=== PATIENT | female | born 1970 | race Caucasian/White ===

== ENCOUNTER → 2017-02-27 | Outpatient (CLI) | payer BC ==
--- NOTE | 2017-02-27 17:14 | US ---
EXAMINATION TYPE: US thyroid st tissue head/neck DATE OF EXAM: 02/27/2017 COMPARISON: NONE CLINICAL HISTORY: E04.1 Thyroid Nodule E03.9 Hypothyroidism. Difficulty swallowing, cannot lay on her back because airway gets cut off GLAND SIZE: Right Lobe: 4.6 x 1.6 x 1.6 cm Overall Parenchyma: homogeneous Left Lobe: 5.2 x 1.2 x 1.5 cm Overall Parenchyma: homogeneous Isthmus Thickness: 0.2 cm NODULES RIGHT: # of nodules measured on right: 1 1. 0.5 X 0.4 x 0.4 cm hypoechoic cystic nodule at the mid pole with well-defined margins. This nod ule is wider than tall and shows intranodular vascularity. Prior size: 0.4 x 0.3 x 0.3 cm LEFT: # of nodules measured on left: 0 ISTHMUS: # of nodules measured in the isthmus: 0 Bilateral neck scanned, no evidence of lymphadenopathy. IMPRESSION: Essentially stable exam
== END | disposition home or self-care (01) ==
LOC: RADUSWWP 15:35
PROVIDERS: ATTEND Family Medicine
DX: E04.1 Nontoxic single thyroid nodule (principal); E03.9 Hypothyroidism, unspecified
CPT/HCPCS: 76536

== ENCOUNTER → 2018-01-06 | Outpatient (CLI) | payer BC ==
--- NOTE | 2018-01-06 10:17 | FL ---
EXAMINATION: Cervical and Thoracic Esophagram DATE OF EXAM: 01/06/2018 CLINICAL INDICATION: 47-year-old female with dysphagia, complaining of food getting stuck in throat f or the last 6-12 months. COMPARISON: Correlation thyroid ultrasound 02/27/2017 Total Fluoroscopy Time: 1 minute 18 seconds Total images: 34 FINDINGS: The swallowing mechanism is normal. There is minimal focal impression onto the posterior esophageal w all at the level of the lower cervical spine secondary to very mild endplate spondylosis. Otherwise, hypopharyngeal anatomy is preserved without evidence for diverticulum or web. The cervical and thoracic portions have a normal course and caliber and normal motility. The mucosa i s normal and no persistent filling defect is encountered. There is a tiny sliding hiatal hernia. Gastroesophageal reflux could not be elicited during the cours e of the exam IMPRESSION: 1. Minimal endplate spondylosis causing very mild posterior impression along the upper esophagus wall . No obstructive changes. 2. No esophageal diverticulum, stricture, web, or other anatomic abnormality to explain the patient's dysphagia. 3. Tiny sliding hiatal hernia.
== END | disposition home or self-care (01) ==
LOC: RADFLMAIN 09:28
PROVIDERS: ATTEND Family Medicine
DX: K44.9 Diaphragmatic hernia without obstruction or gangrene (principal)
CPT/HCPCS: 74220

== ENCOUNTER 2018-06-05 09:32 | Observation (INO) | payer BC ==
[2018-06-05] MEDS ORDERED: PANTOPRAZOLE 40 MG/10 ML VIAL IVP STA (10:20)
[2018-06-05] MEDS ORDERED: SODIUM CHLORIDE 0.9% 1,000 ML IV STA (10:20)
[2018-06-05] MEDS ORDERED: ONDANSETRON 4 MG/2 ML VIAL IVP STA (10:20)
[2018-06-05] MEDS ORDERED: MORPHINE SULFATE 4 MG/ML SYRINGE IV STA (10:20)
--- NOTE | 2018-06-05 10:50 | ED ---
Abdominal Pain HPI - General Chief Complaint: Abdominal Pain Stated Complaint: abd and leg pain Time Seen by Provider: 06/05/18 09:54 Source: patient, RN notes reviewed, old records reviewed Mode of arrival: ambulatory Limitations: no limitations - History of Present Illness Initial Comments: Patient is a 39-year-old female presents emergency department today with days of left-sided abdominal pain. Patient reports symptoms have progressed rapidly. She states that she did have some loose stools today. She states that she has had no fevers or chills. She states the pain does radiate towards her back. Patient reports that she's had no abnormal vaginal discharge or dysuria or hematuria. Surgical history includes appendectomy.Patient denies any recent fever, chills, shortness of breath, chest pain, back pain, numbness or tingling, dysuria or hematuria, constipation or diarrhea, headaches or visual changes, or any other current symptoms - Related Data Home Medications Medication Instructions Recorded Confirmed Lisinopril [Zestril] 10 mg PO QAM 03/17/14 06/05/18 Cholecalciferol [Vitamin D3] 1,000 unit PO HS 06/05/18 06/05/18 Evening [place] Oil 500 mg PO DAILY 06/05/18 06/05/18 Levothyroxine Sodium [Synthroid] 100 mcg PO DAILY 06/05/18 06/05/18 Magnesium Oxide [Mag-Ox] 250 mg PO DAILY 06/05/18 06/05/18 Multivitamins, Thera [Multivitamin 1 tab PO DAILY 06/05/18 06/05/18 (formulary)] Previous Rx's Medication Instructions Recorded EPINEPHrine [Epipen 2-Benito] 0.3 mg IM ONCE PRN #1 ml 03/27/14 Allergies Allergy/AdvReac Type Severity Reaction Status Date / Time No Known Allergies Allergy Verified 06/05/18 09:56 Review of Systems ROS Statement: Those systems with pertinent positive or pertinent negative responses have been documented in the HPI. ROS Other: All systems not noted in ROS Statement are negative. Past Medical History Past Medical History: Hypertension, Thyroid Disorder Additional Past Medical History / Comment(s): pt states mild mummur, see Dr Taveras History of Any Multi-Drug Resistant Organisms: None Reported Past Surgical History: Appendectomy, Tubal Ligation Additional Past Surgical History / Comment(s): JAW SURGERY, d&c Past Anesthesia/Blood Transfusion Reactions: No Reported Reaction Past Psychological History: No Psychological Hx Reported Smoking Status: Current every day smoker Past Alcohol Use History: Occasional Past Drug Use History: None Reported - Past Family History Father Family Medical History: Cancer General Exam - General Exam Comments Initial Comments: Patient is a 47-year-old female. Alert and oriented. Patient appears in no significant distress. Limitations: no limitations General appearance: alert, in no apparent distress Head exam: Present: atraumatic, normocephalic, normal inspection Eye exam: Present: normal appearance, PERRL, EOMI. Absent: scleral icterus, conjunctival injection, periorbital swelling ENT exam: Present: normal exam, mucous membranes moist Neck exam: Present: normal inspection. Absent: tenderness, meningismus, lymphadenopathy Respiratory exam: Present: normal lung sounds bilaterally. Absent: respiratory distress, wheezes, rales, rhonchi, stridor Cardiovascular Exam: Present: regular rate, normal rhythm, normal heart sounds. Absent: systolic murmur, diastolic murmur, rubs, gallop, clicks GI/Abdominal exam: Present: soft, normal bowel sounds. Absent: distended, tenderness, guarding, rebound, rigid Extremities exam: Present: normal inspection, full ROM, normal capillary refill. Absent: tenderness, pedal edema, joint swelling, calf tenderness Back exam: Present: normal inspection Neurological exam: Present: alert, oriented X3, CN II-XII intact Psychiatric exam: Present: normal affect, normal mood Skin exam: Present: warm, dry, intact, normal color. Absent: rash Course Vital Signs 06/05/18 06/05/18 09:39 12:42 Temperature 97.7 F Pulse Rate 94 77 Respiratory 18 18 Rate Blood Pressure 184/115 143/101 O2 Sat by Pulse 96 96 Oximetry Medical Decision Making - Medical Decision Making Patient is a 47-year-old female presents emergency Department complaint of left- sided abdominal pain progressive over the past 4 days. Patient states she's felt nauseated. It is had some loose stools today. She hasn't had few diffuse tenderness, worse over the left upper and lower quadrants. She had IV fluids labwork obtained. CT was completed. Patient's labwork was reviewed and negative for any acute process. CT did show evidence of common bile duct dilation as well as ampulla Vater dilation. Concern for possibility of a MRCP with and without contrast. Patient was informed of these results. Did discuss it's unusual to have the CT findings without abnormalities in her blood work. Patient was offered admission for close follow-up with GI. She agrees. Patient states she prefers to see GI with inpatient treatment. We'll keep the Patient on IV fluids, and consult to GI. - Lab Data Result diagrams: 06/05/18 09:56 06/05/18 09:56 Lab Results 06/05/18 06/05/18 06/05/18 Range/Units 09:56 09:56 09:56 WBC 7.3 (3.8-10.6) k/uL RBC 4.76 (3.80-5.40) m/uL Hgb 14.6 (11.4-16.0) gm/dL Hct 45.4 (34.0-46.0) % MCV 95.3 (80.0-100.0) fL MCH 30.7 (25.0-35.0) pg MCHC 32.2 (31.0-37.0) g/dL RDW 13.3 (11.5-15.5) % Plt Count 214 (150-450) k/uL Neutrophils % 72 % Lymphocytes % 15 % Monocytes % 6 % Eosinophils % 3 % Basophils % 0 % Neutrophils # 5.2 (1.3-7.7) k/uL Lymphocytes # 1.1 (1.0-4.8) k/uL Monocytes # 0.4 (0-1.0) k/uL Eosinophils # 0.2 (0-0.7) k/uL Basophils # 0.0 (0-0.2) k/uL PT 9.8 (9.0-12.0) sec INR 1.0 (<1.2) APTT 25.6 (22.0-30.0) sec Sodium 139 (137-145) mmol/L Potassium 4.7 (3.5-5.1) mmol/L Chloride 104 (98-107) mmol/L Carbon Dioxide 23 (22-30) mmol/L Anion Gap 12 mmol/L BUN 13 (7-17) mg/dL Creatinine 0.60 (0.52-1.04) mg/dL Est GFR (CKD-EPI)AfAm >90 (>60 ml/min/1.73 sqM) Est GFR (CKD-EPI)NonAf >90 (>60 ml/min/1.73 sqM) Glucose 89 (74-99) mg/dL Calcium 9.5 (8.4-10.2) mg/dL Total Bilirubin 0.4 (0.2-1.3) mg/dL AST 33 (14-36) U/L ALT 32 (9-52) U/L Alkaline Phosphatase 85 (38-126) U/L Total Protein 7.4 (6.3-8.2) g/dL Albumin 4.5 (3.5-5.0) g/dL Amylase 58 (30-110) U/L Lipase 70 (23-300) U/L Urine Color Urine Appearance (Clear) Urine pH (5.0-8.0) Ur Specific [place] (1.001-1.035) Urine Protein (Negative) Urine Glucose (UA) (Negative) Urine Ketones (Negative) Urine Blood (Negative) Urine Nitrite (Negative) Urine Bilirubin (Negative) Urine Urobilinogen (<2.0) mg/dL Ur Leukocyte Esterase (Negative) 06/05/18 Range/Units 09:56 WBC (3.8-10.6) k/uL RBC (3.80-5.40) m/uL Hgb (11.4-16.0) gm/dL Hct (34.0-46.0) % MCV (80.0-100.0) fL MCH (25.0-35.0) pg MCHC (31.0-37.0) g/dL RDW (11.5-15.5) % Plt Count (150-450) k/uL Neutrophils % % Lymphocytes % % Monocytes % % Eosinophils % % Basophils % % Neutrophils # (1.3-7.7) k/uL Lymphocytes # (1.0-4.8) k/uL Monocytes # (0-1.0) k/uL Eosinophils # (0-0.7) k/uL Basophils # (0-0.2) k/uL PT (9.0-12.0) sec INR (<1.2) APTT (22.0-30.0) sec Sodium (137-145) mmol/L Potassium (3.5-5.1) mmol/L Chloride (98-107) mmol/L Carbon Dioxide (22-30) mmol/L Anion Gap mmol/L BUN (7-17) mg/dL Creatinine (0.52-1.04) mg/dL Est GFR (CKD-EPI)AfAm (>60 ml/min/1.73 sqM) Est GFR (CKD-EPI)NonAf (>60 ml/min/1.73 sqM) Glucose (74-99) mg/dL Calcium (8.4-10.2) mg/dL Total Bilirubin (0.2-1.3) mg/dL AST (14-36) U/L ALT (9-52) U/L Alkaline Phosphatase (38-126) U/L Total Protein (6.3-8.2) g/dL Albumin (3.5-5.0) g/dL Amylase (30-110) U/L Lipase (23-300) U/L Urine Color Light Yellow Urine Appearance Clear (Clear) Urine pH 5.5 (5.0-8.0) Ur Specific [place] 1.004 (1.001-1.035) Urine Protein Negative (Negative) Urine Glucose (UA) Negative (Negative) Urine Ketones Negative (Negative) Urine Blood Negative (Negative) Urine Nitrite Negative (Negative) Urine Bilirubin Negative (Negative) Urine Urobilinogen <2.0 (<2.0) mg/dL Ur Leukocyte Esterase Negative (Negative) - Radiology Data Radiology results: report reviewed There is mainly pancreatic ductal and common bile duct dilation without discrete pancreatic head mass on CT. Fullness of the ampulla of Vater with then the duodenum may relate to. Ampullary mass creating ductal obstruction or prominent duodenal mucosal folds. MRCP with and without contrast is recommended. Appendix is not visualized. Multiple loops of fluid-filled small bowel may relate to mild ileus. No evidence of obstruction. Disposition Clinical Impression: Left lateral abdominal pain, Abnormal CT of the abdomen Disposition: ADMITTED IP TO THIS [facility] Condition: Stable Is patient prescribed a controlled substance at d/c from ED?: No Referrals: None,Stated [Primary Care Provider] - 1-2 days Time of Disposition: 13:05
[2018-06-05 10:59] LABS: Basophils % (A) 0 %; Eosinophils # (A) 0.2 k/uL (0-0.7); Eosinophils % (A) 3 %; HCT 45.4 % (34.0-46.0); HGB 14.6 gm/dL (11.4-16.0); Lymphocytes # (A) 1.1 k/uL (1.0-4.8); Lymphocytes % (A) 15 %; MCH 30.7 pg (25.0-35.0); MCHC 32.2 g/dL (31.0-37.0); MCV 95.3 fL (80.0-100.0); Monocytes # (A) 0.4 k/uL (0-1.0); Monocytes % (A) 6 %; Neutrophils # (A) 5.2 k/uL (1.3-7.7); Neutrophils % (A) 72 %; Platelet Count 214 k/uL (150-450); RBC 4.76 m/uL (3.80-5.40); RDW 13.3 % (11.5-15.5); WBC 7.3 k/uL (3.8-10.6)
[2018-06-05 11:03] LABS: Appearance,Urine Clear (Clear); Bilirubin,Urine Negative (Negative); Blood,Urine Negative (Negative); Color,Urine Light Yellow; Glucose,Urine (UA) Negative (Negative); Ketones,Urine Negative (Negative); Leukocyte Esterase,Urine Negative (Negative); Nitrite,Urine Negative (Negative); PH, Urine 5.5 (5.0-8.0); Protein,Urine Negative (Negative); Specific Gravity,Urine 1.004 (1.001-1.035); Urobilinogen,Urine <2.0 mg/dL (<2.0)
[2018-06-05 11:09] LABS: ALT 32 U/L (9-52); AST 33 U/L (14-36); Albumin 4.5 g/dL (3.5-5.0); Alkaline Phosphatase 85 U/L (38-126); Amylase 58 U/L (30-110); Anion Gap 12 mmol/L; Blood Urea Nitrogen 13 mg/dL (7-17); Calcium 9.5 mg/dL (8.4-10.2); Carbon Dioxide 23 mmol/L (22-30); Chloride 104 mmol/L (98-107); Glucose 89 mg/dL (74-99); Lipase 70 U/L (23-300); Sodium 139 mmol/L (137-145); Total Bilirubin 0.4 mg/dL (0.2-1.3); Total Protein 7.4 g/dL (6.3-8.2)
[2018-06-05 11:15] LABS: Partial Thromboplastin Time 25.6 sec (22.0-30.0); Prothrombin Time 9.8 sec (9.0-12.0)
[2018-06-05 11:22] LABS: Potassium 4.7 mmol/L (3.5-5.1)
--- NOTE | 2018-06-05 11:38 | CT ---
EXAMINATION TYPE: CT abdomen pelvis w con DATE OF EXAM: 06/05/2018 HISTORY: Left side pain and bloating. CT DLP: 537.7mGycm Automated Exposure Control for Dose Reduction was Utilized. CONTRAST: CT scan of the abdomen and pelvis is performed with IV Contrast, patient injected with 100 mL of Isov ue 300. COMPARISON: None. FINDINGS: LUNG BASES: Bibasilar subsegmental dependent atelectasis is seen with linear left basilar pleural par enchymal scarring. LIVER/GB: Geographic area of hypoattenuation is seen surrounding the fissure for the falciform ligame nt, a common location of focal fatty infiltration. Gallbladder is partially contracted but grossly un remarkable.. PANCREAS: There is both main pancreatic ductal dilatation measuring up to 4.4 mm near the pancreatic head and 4.2 mm in the pancreatic body on coronal imaging as well and common bile duct dilatation up to 7.8 mm. No gross pancreatic head mass is seen. There is fullness of the pancreatic tail on axial s eries 201 image 17. Pancreaticoduodenal groove is obscured. Fullness of the ampulla of Vater as seen on image 34 measuring 1 cm that could relate to a periampullary mass screening ductal dilatation or p rominent duodenal folds. SPLEEN: No significant abnormality is seen. ADRENALS: No significant abnormality is seen. KIDNEYS: Kidneys enhance symmetrically. BOWEL: Appendix is not seen. No localized right lower quadrant fat stranding is present. Numerous loo ps of small bowel are fluid-filled throughout the abdomen and may relate to mild ileus. No dilated la rge or small bowel. Diastases recti is noted. UTERUS/ADNEXA: No gross abnormality seen. LYMPH NODES: No greater than 1cm abdominal or pelvic lymph nodes are appreciated. OSSEOUS STRUCTURES: No significant abnormality is seen. IMPRESSION: 1. Main pancreatic ductal and common bile ductal dilatation without discrete pancreatic head mass on CT. Fullness at the ampulla of Vater within the duodenum may relate to a periampullary mass creating ductal obstruction or prominent duodenal mucosal folds. MRCP WITH and WITHOUT contrast is recommended for further evaluation. 2. Appendix is not visualized. Multiple loops of fluid-filled small bowel may relate to mild ileus. N o evidence of obstruction.
[2018-06-05] MEDS ORDERED: NALOXONE 0.4 MG/ML 1 ML VIAL IV PRN (13:06)
[2018-06-05] MEDS ORDERED: KETOROLAC 30 MG/ML 1 ML VIAL IVP PRN (13:06)
[2018-06-05] MEDS ORDERED: ONDANSETRON 4 MG/2 ML VIAL IVP PRN (13:06)
[2018-06-05] MEDS ORDERED: EPINEPHRINE 0.3 MG IM PRN (13:09)
[2018-06-05] MEDS ORDERED: NICOTINE 21MG/24HR PATCH TRANSDERM STA (13:09)
[2018-06-05] MEDS: MORPHINE SULFATE 4 MG/ML SYRINGE IV PRN ×2 (14:31→20:48)
[2018-06-05] MEDS: SODIUM CHLORIDE 0.9% 1,000 ML IV SCH (14:32)
[2018-06-05] MEDS ORDERED: CHOLECALCIFEROL 1,000 UNIT TAB PO SCH (21:00)
[2018-06-06] MEDS: SODIUM CHLORIDE 0.9% 1,000 ML IV SCH ×2 (00:03→12:11)
[2018-06-06 03:16] LABS: Cancer Antigen 19-9 7.2 U/mL (0.0-34.9)
[2018-06-06] MEDS: MORPHINE SULFATE 4 MG/ML SYRINGE IV PRN (06:18)
[2018-06-06] MEDS ORDERED: LEVOTHYROXINE 100 MCG TAB PO SCH (06:30)
--- NOTE | 2018-06-06 08:10 | HP ---
HISTORY AND PHYSICAL CHIEF COMPLAINT: White female came in with abdominal bloating, abdominal pain over 1-2 weeks duration. She was found to have on a CT scan, possible pancreatic mass. She was admitted to the hospital due to abdominal pain and bloating. She also complained of radicular-type pain from her lower back. Her labs, CBC and Chem panel including amylase, lipase have been normal so far as well as UA. Awaiting MRI of the abdomen which will be done in the morning. REVIEW OF SYSTEM: 14 point review of systems otherwise is negative. VITAL SIGNS: Vital signs stable. Afebrile. CARDIOVASCULAR: S1, S2. LUNGS: Clear. MUSCULOSKELETAL: Palpation lumbar spine bilaterally. GI is tenderness to palpation left mid quadrant of the abdomen. No guarding. No rebound tenderness. Normal bowel sounds. Hematology negative Homans. Psych fair mood and affect. ASSESSMENT: 1. Possible pancreatic mass, acute abdominal pain and bloating due to possible pancreatic mass suspect lumbar radiculopathy. 2. Nicotine addiction. Continue current treatment. Await MRI of the abdomen and cancer workup with multiple blood tests for cancer as mentioned. MMODL / IJN: [id number] /
[2018-06-06] MEDS ORDERED: MAGNESIUM OXIDE 400 MG TAB PO SCH (09:00)
[2018-06-06] MEDS ORDERED: MULTIVITAMINS, THERA 1 EACH TAB PO SCH (09:00)
[2018-06-06] MEDS ORDERED: LISINOPRIL 10 MG TAB PO SCH (09:00)
[2018-06-06 09:30] VITALS: RESP 18
--- NOTE | 2018-06-06 11:17 | P.GSCN ---
History of Present Illness Consult date: 06/06/18 Reason for Consult: Abdominal pain History of present illness: 47-year-old female presented to the emergency room to be evaluated for having developed left-sided lower abdominal pain radiated into the supra pubic area across the back and down the left leg. Patient states symptoms have been ongoing for the last several days. No fever chills. Patient reports no burning on urination frequency urgency. Reports that over the last week she developed loose stools have been orange in color. Patient stated the pain was most bothersome in her back. Came into the emergency room to be evaluated for the above-mentioned symptoms. CAT scan of the abdomen pelvis obtained in the emergency room appendix was not seen reviewing the report indicated multiple loops of fluid in small bowel may relate to mild ileus no evidence of an obstruction. The pancreatic ductal and common bile ductal dilatation without discrete pancreatic head mass. Fullness at the ampulla of vater within the duodenum may relate to a periampullary mass creating ductal obstruction. Recommending MRCP for further evaluation [place] denied any prior episodes. Past surgical history appendectomy and Tubal ligation. Past medical history thyroid disease and hypertension CA-19-9 7.2 lipase 70 amylase 58 AST 33 ALT 32 alkaline phosphatase 85 white count 7.3 Review of Systems Essentially unremarkable except as mentioned in the present illness Past Medical History Past Medical History: GERD/Reflux, Hypertension, Osteoarthritis (OA), Thyroid Disorder Additional Past Medical History / Comment(s): Diarrhea past few weeks-stool became orange, cardiac murmur, hypothyroid, arthritis bilateral hips and neck, past endometriosis/surgery. 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 Past Anesthesia/Blood Transfusion Reactions: No Reported Reaction Smoking Status: Current every day smoker - Past Family History Father Family Medical History: Cancer Additional Family Medical History / Comment(s): Father of renal cancer. Mother Additional Family Medical History / Comment(s): Mother "bled out" r/t surgery and having been on a blood thinner. Medications and Allergies Home Medications Medication Instructions Recorded Confirmed Type Lisinopril [Zestril] 10 mg PO QAM 03/17/14 06/05/18 History EPINEPHrine [Epipen 2-Benito] 0.3 mg IM ONCE PRN #1 ml 03/27/14 06/05/18 Rx Cholecalciferol [Vitamin D3] 1,000 unit PO HS 06/05/18 06/05/18 History Evening [place] Oil 500 mg PO DAILY 06/05/18 06/05/18 History Levothyroxine Sodium [Synthroid] 100 mcg PO DAILY 06/05/18 06/05/18 History Magnesium Oxide [Mag-Ox] 250 mg PO DAILY 06/05/18 06/05/18 History Multivitamins, Thera [Multivitamin 1 tab PO DAILY 06/05/18 06/05/18 History (formulary)] Allergies Allergy/AdvReac Type Severity Reaction Status Date / Time No Known Allergies Allergy Verified 06/05/18 09:56 Surgical - Exam Vital Signs Temp Pulse Resp BP Pulse Ox 97.7 F 94 18 184/115 96 06/05/18 09:39 06/05/18 09:39 06/05/18 09:39 06/05/18 09:39 06/05/18 09:39 GENERAL APPEARANCE: 47-year-old female patient is alert, oriented, in no acute distress. VITAL SIGNS: Reviewed HEENT: Head is normocephalic and atraumatic. Pupils are equal and reactive. The nares are patent. Oropharynx is clear without lesions. NECK: Supple without lymphadenopathy. Traches midline. HEART: S1, S2. Regular rate and rhythm no murmur noted. Denying chest pain LUNGS: No crackles or wheezes are heard. No cough noted no shortness of breath ABDOMEN: Soft, mild tenderness left lower quadrant nondistended with good bowel sounds. No peritoneal signs. No palpable organomegaly or masses. EXTREMITIES: Normal skin color and turgor. No cyanosis, rash, ulceration, clubbing or edema. Radial pedal pulses are 2/4 bilaterally. NEUROLOGICAL: No focal deficits. Strength and sensation are grossly intact. Results - Labs 06/05/18 09:56 06/05/18 09:56 Diabetes panel 06/05/18 Range/Units 09:56 Sodium 139 (137-145) mmol/L Potassium 4.7 (3.5-5.1) mmol/L Chloride 104 (98-107) mmol/L Carbon Dioxide 23 (22-30) mmol/L BUN 13 (7-17) mg/dL Creatinine 0.60 (0.52-1.04) mg/dL Glucose 89 (74-99) mg/dL Calcium 9.5 (8.4-10.2) mg/dL AST 33 (14-36) U/L ALT 32 (9-52) U/L Alkaline Phosphatase 85 (38-126) U/L Total Protein 7.4 (6.3-8.2) g/dL Albumin 4.5 (3.5-5.0) g/dL Calcium panel 06/05/18 Range/Units 09:56 Calcium 9.5 (8.4-10.2) mg/dL Albumin 4.5 (3.5-5.0) g/dL Pituitary panel 06/05/18 Range/Units 09:56 Sodium 139 (137-145) mmol/L Potassium 4.7 (3.5-5.1) mmol/L Chloride 104 (98-107) mmol/L Carbon Dioxide 23 (22-30) mmol/L BUN 13 (7-17) mg/dL Creatinine 0.60 (0.52-1.04) mg/dL Glucose 89 (74-99) mg/dL Calcium 9.5 (8.4-10.2) mg/dL Adrenal panel 06/05/18 Range/Units 09:56 Sodium 139 (137-145) mmol/L Potassium 4.7 (3.5-5.1) mmol/L Chloride 104 (98-107) mmol/L Carbon Dioxide 23 (22-30) mmol/L BUN 13 (7-17) mg/dL Creatinine 0.60 (0.52-1.04) mg/dL Glucose 89 (74-99) mg/dL Calcium 9.5 (8.4-10.2) mg/dL Total Bilirubin 0.4 (0.2-1.3) mg/dL AST 33 (14-36) U/L ALT 32 (9-52) U/L Alkaline Phosphatase 85 (38-126) U/L Total Protein 7.4 (6.3-8.2) g/dL Albumin 4.5 (3.5-5.0) g/dL Assessment and Plan Assessment: Impression Present on admission left lower quadrant pain with frequent stooling with an abnormal CAT scan of the abdomen pancreatic ductal and common bile duct dilatation possible pancreatic mass Computed tomography scan abdomen pelvis report indicate pancreatic ductal and common bile duct dilatation without discrete pancreatic head mass ampullary Creating ductal obstruction. Current every day smoker Plan Await the findings from the MRCP currently pending IV fluid for hydration Pain control Further surgical workup pending clinical course Patient's been advised to stop smoking cigarettes We'll follow with you Surgical consultation dictated for dr beach The above impression and plan of care have been discussed and directed by signing physician. Alyson Sy nurse practitioner acting as scribe for signing physician.
[2018-06-06 12:16] VITALS: BP 174/93; PULSE 73; TEMP 98
--- NOTE | 2018-06-06 12:18 | P.CONS ---
History of Present Illness - Reason for Consult Consult date: 06/06/18 Abdominal pain Requesting physician: Varghese Banda - Chief Complaint Abdominal pain - History of Present Illness 47-year-old female past medical history of chronic nicotine cigarette dependency , GERD, hypertension, hypothyroidism, appendectomy presents with acute left- sided lower periumbilical abdominal pain nausea vomiting fever 2 weeks. Denies hematemesis hematochezia melena hematuria or vaginal discharge. No history of this type of pain. CT abdomen and pelvis reported both main pancreatic duct measuring up to 4.4 mm at the pancreatic head and 4.2 mm in the pancreatic body as well as common bile duct dilatation up to 7.8 mm. No gross pancreatic head mass is seen. There is fullness of the pancreatic tail and fullness of the ampulla of vater measuring 1 cm that could relate to periampullary mass. Patient smokes a pack of cigarettes daily for most of her adult life. 3 alcoholic drinks on a weekly basis. CA-19-9 CEA within normal limits. Pancreatic enzymes and liver enzymes within normal limits. No documented fevers during this admission. White count 7.3. Hemoccult 14.6. INR 1.0. BUN 13. Creatinine 0.6. Platelet 214. Review of Systems Constitutional: Reports intermittent fevers denies, chills, sweats, weight gain , or loss. HEENT: Negative for migraines, blurred vision or loss, earaches, drainage, tinnitus, oral mucosal lesions, dysphagia, or odynophagia. CARDIAC: Negative for chest pain, arrhythmias, or palpitation. RESPIRATORY: Negative for shortness of breath, hemoptysis, cough, or sputum production. GI: See HPI for pertinent findings. : Negative for hematuria, urgency, frequency, polyuria, or dysuria. GYNc: Denies possibility of . Negative vaginal discharge. MUSCULOSKELETAL: Negative for muscle aches, swelling, arthritis, and arthralgias. NEUROLOGIC: Negative for stroke or TIA. ENDOCRINE: Negative for thyroid problems. SKIN: Negative for rash or itching. PSYCHIATRIC: Negative history for depression and anxiety Past Medical History Past Medical History: GERD/Reflux, Hypertension, Osteoarthritis (OA), Thyroid Disorder Additional Past Medical History / Comment(s): Diarrhea past few weeks-stool became orange, cardiac murmur, hypothyroid, arthritis bilateral hips and neck, past endometriosis/surgery. 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 Past Anesthesia/Blood Transfusion Reactions: No Reported Reaction Smoking Status: Current every day smoker - Past Family History Father Family Medical History: Cancer Additional Family Medical History / Comment(s): Father of renal cancer. Mother Additional Family Medical History / Comment(s): Mother "bled out" r/t surgery and having been on a blood thinner. Medications and Allergies Home Medications Medication Instructions Recorded Confirmed Type Lisinopril [Zestril] 10 mg PO QAM 03/17/14 06/05/18 History EPINEPHrine [Epipen 2-Benito] 0.3 mg IM ONCE PRN #1 ml 03/27/14 06/05/18 Rx Cholecalciferol [Vitamin D3] 1,000 unit PO HS 06/05/18 06/05/18 History Evening [place] Oil 500 mg PO DAILY 06/05/18 06/05/18 History Levothyroxine Sodium [Synthroid] 100 mcg PO DAILY 06/05/18 06/05/18 History Magnesium Oxide [Mag-Ox] 250 mg PO DAILY 06/05/18 06/05/18 History Multivitamins, Thera [Multivitamin 1 tab PO DAILY 06/05/18 06/05/18 History (formulary)] Allergies Allergy/AdvReac Type Severity Reaction Status Date / Time No Known Allergies Allergy Verified 06/05/18 09:56 Physical Exam Vitals: Vital Signs Temp Pulse Pulse Resp BP BP Pulse Ox 06/06/18 09:29 77 18 162/94 06/06/18 09:00 77 06/06/18 05:46 97.9 F 82 16 130/80 94 L 06/05/18 22:22 97.8 F 80 16 123/77 93 L 06/05/18 19:29 96.2 F L 80 18 138/82 94 L 06/05/18 15:00 98.4 F 79 16 157/95 94 L 06/05/18 12:42 77 18 143/101 96 Intake and Output 06/05/18 06/06/18 06/06/18 22:59 06:59 14:59 Intake Total 350 900 Balance 350 900 Intake: Intake, IV Titration 900 Amount Sodium Chloride 0.9% 1, 900 000 ml @ 100 mls/hr IV . Q10H [facility] Rx#:[id number] Oral 350 Other: Voiding Method Toilet Toilet Toilet # Voids 1 2 General appearance: The patient is alert, oriented, in no acute distress. HET: Head is normocephalic and atraumatic. Pupils are equal and reactive. Oropharynx is clear without lesions. Neck: Supple without lymphadenopathy. Trachea midline. Heart: S1 S2. Regular rate and rhythm. Lungs: No crackles or wheezes are heard. Abdomen: Soft, left lower quadrant periumbilical tenderness, nondistended with bowel sounds. No peritoneal signs. No palpable organomegaly or masses. Extremities: Normal skin color and turgor. No cyanosis, rash, ulceration, clubbing, or edema. Radial and pedal pulses are 2/4 bilaterally. Neurological: No focal deficits. Strength and sensation are grossly intact. Results CBC & Chem 7: 06/05/18 09:56 06/05/18 09:56 CT scan - abdomen: report reviewed (Dr. Guevara) MRI - abdomen: report reviewed (Pending result) Assessment and Plan (1) Abnormal CT of the abdomen Narrative/Plan: 47-year-old female presents with a 2 week history of left-sided abdominal pain nausea vomiting nonbloody bowel movements with normal liver pancreatic enzymes CT imaging reports dilated pancreatic and common bile duct without obvious pancreatic mass possible periampullary mass. Current Visit: Yes Status: Acute Code(s): R93.5 - ABN FINDINGS ON DX IMAGING OF ABD REGIONS, INC RETROPERITON SNOMED Code(s): 53730514279329877 (2) Left sided abdominal pain Current Visit: Yes Status: Acute Code(s): R10.9 - UNSPECIFIED ABDOMINAL PAIN SNOMED Code(s): 205311301 (3) Cigarette nicotine dependence Current Visit: Yes Status: Acute Code(s): F17.210 - NICOTINE DEPENDENCE, CIGARETTES, UNCOMPLICATED SNOMED Code(s): 84071149 Plan: 1. MRI pancreas/MRCP completed results pending. Possible ERCP pending MRI results possible endoscopic ultrasound which would need to be referred outpatient to a tertiary center. Continue the nothing by mouth status. GI prophylaxis. We'll follow closely with you. The humane officer has discussed the risks, benefits and alternative therapies for the above-mentioned procedure and for both sedation/analgesia as well as necessary blood product administration, if indicated, as they pertain to this patient. The patient has indicated understanding and acceptance of the risks and procedures discussed. Thank you for this kind referral and the opportunity to participate in the care of your patient. This consultation was discussed with Dr. Guevara. The impression and plan of care have been directed as dictated.
--- NOTE | 2018-06-06 12:28 | MR ---
EXAMINATION TYPE: MR pancreas / mrcp wo/w con DATE OF EXAM: 06/06/2018 COMPARISON: CT abdomen pelvis from yesterday. HISTORY: abdominal pain, abnormal CT. Left-sided pain and bloating. CONTRAST: Standard multiplanar, multisequence MRI departmental protocol utilizing 6 mL intravenous Gadavist babatunde olinium contrast. Imaging is performed of the abdomen focusing on pancreas. Thin and thick slice MRC P imaging is acquired. FINDINGS: LIVER/GB/PANCREAS/BILIARY SYSTEM: Pancreas is normal in size. No suspicious solid or cystic mass is p resent. No surrounding inflammatory change or fluid collection is noted. Correlating with CT pancreat ic duct is visualized to ampulla but measures 3 mm or smaller in size on MRI and MRCP images obtained . Slight tortuosity in the head is noted without suspicious dilatation. Duct is visualized to ampulla . Gallbladder remains partially contracted without intraluminal gallstones. No surrounding inflammatory change or fluid is noted. Wall thickness is upper limits of normal. Liver is upper limits of normal in size. No suspicious solid or cystic mass is seen. No suspicious in trahepatic biliary dilatation noted. Common bile duct measures up to 7 mm in diameter near chelsi hepa tis with tapering towards the ampulla. No obvious obstructing calculus or mass is seen. Less soft tis prudencio fullness versus CT is noted at this level. No significant fat stranding or inflammatory changes i dentified. OTHER: There is persistent posterior left basilar linear scarring or atelectasis. There is new right basilar atelectasis. Spleen and both adrenal glands are normal in size. There is no concerning renal mass or hydronephrosi s. There is no suspicious bowel dilatation. There is no concerning abdominal fluid collection. Osseou s structures show hemangioma at left L2 level. IMPRESSION: 1. No distinct pancreatic dilatation on current study. Mild to minimal extrahepatic biliary dilatatio n. No gallstones or CBD stones identified. No obvious ampullary mass identified. ERCP is more sensiti ve and can be performed if strong clinical suspicion persists.
== END 2018-06-06 17:52 | disposition home or self-care (01) ==
LOC: EC 09:32 → 3NMEDONC 13:10
PROVIDERS: ADMIT Family Medicine; ATTEND Family Medicine
DX: R10.12 Left upper quadrant pain (principal); R10.32 Left lower quadrant pain; R14.0 Abdominal distension (gaseous); R19.7 Diarrhea, unspecified; M79.606 Pain in leg, unspecified; E03.9 Hypothyroidism, unspecified; I10 Essential (primary) hypertension; F17.210 Nicotine dependence, cigarettes, uncomplicated; R94.8 Abnormal results of function studies of other organs and systems; K21.9 Gastro-esophageal reflux disease without esophagitis; M13.89 Other specified arthritis, multiple sites; Z98.890 Other specified postprocedural states; Z80.51 Family history of malignant neoplasm of kidney; R11.2 Nausea with vomiting, unspecified; R50.9 Fever, unspecified; Z79.890 Hormone replacement therapy; Z79.899 Other long term (current) drug therapy
CPT/HCPCS: 99285 ×2; 96374 ×2; 96375 ×3; 96361; 96376 ×2; 36415; 80053; 82378; 82150; 83690; 85025; 85610; 85730; 81003; 86301; 74177; 74183; G0378 ×2; S4990; J2270 ×2; J2405; J1885; C9113; A9585; Q9967